=== PATIENT | male | born 1970 | race Two or more races ===

== ENCOUNTER 2020-01-09 18:20 | Emergency (ER) | payer MEDICAID, OTHER ==
[~2020-01-09] VITALS: Ht 182.9 cm; Wt 81.6 kg
[2020-01-09 18:47] VITALS: BP 131/79
[2020-01-09] MEDS ORDERED: Lidocaine 1% MPF 10mg/ml 5ml INJ ONE (19:15)
--- NOTE | 2020-01-09 19:42 | Emergency Room Report ---
History of Present Illness General Chief Complaint: General Complaint Source: Patient Present Illness HPI 49 YO male presents to the ED with 2 complaints. pt. reports 7/10 in severity dysuria x 1 week. He reports burning sensation to the tip of his penis. He denies penile d/c. He denies hematuria. Pt. denies testicular pain or swelling. Pt. reports being sexually active. Pt. denies abdominal pain, tenderness, fevers or chills. He denies rashes or genital sores. Pt. also c/o having acid reflux and is requesting medications for this. Pt. reports that for his urinary symptoms in the past Doxycycline worked the best for him. he denies low back pain. Pt. denies constipation or diarrhea. Pt. denies rectal pain. He denies blood in the stool or black tarry stool. Pt. reports he does not currently have a PCP and is wanting referral for that as well. No other aggravating or relieving factors at this time. Allergies: Coded Allergies: No Known Allergies (Unverified , 01/09/20) COVID-19 Screening Contact w/high risk pt: No Experienced COVID-19 symptoms?: No COVID-19 Testing performed BOOM STORAGE: No Patient History Past Medical History: see triage record Past Surgical History: none Pertinent Family History: none Reviewed Nursing Documentation: PMH: Agreed; PSxH: Agreed Nursing Documentation-PMH Past Medical History: No Stated History Review of Systems All Other Systems: negative except mentioned in HPI Physical Exam Vital Signs Date Time Temp Pulse Resp B/P (MAP) Pulse Ox O2 Delivery O2 Flow Rate FiO2 01/09/20 18:30 99.0 103 17 134/86 (102) 98 Room Air Sp02 EP Interpretation: reviewed, normal General Appearance: no apparent distress, alert, GCS 15, non-toxic Head: normocephalic, atraumatic Eyes: bilateral eye normal inspection, bilateral eye PERRL ENT: hearing grossly normal, normal voice Neck: full range of motion Respiratory: lungs clear, normal breath sounds, speaking full sentences Cardiovascular #1: regular rate, rhythm Gastrointestinal: normal bowel sounds, non tender, soft, non-distended, no guarding Rectal: deferred Genitourinary: normal inspection, no CVA tenderness, scrotum normal, other - no rashes, no sores, no testicular tenderness, no visible penile d/c. Musculoskeletal: back normal, normal range of motion, gait/station normal, non- tender Neurologic: alert, motor strength/tone normal, oriented x3, sensory intact, responsive, speech normal Psychiatric: judgement/insight normal, anxious Skin: no rash, normal color Lymphatic: no adenopathy Medical Decision Making PA Attestation Dr. Tucker is my supervising Physician whom patient management has been discussed with. Diagnostic Impression: Primary Impression: Urethritis ER Course 49 YO male presents to the ED with 2 complaints. pt. reports 7/10 in severity dysuria x 1 week. He reports burning sensation to the tip of his penis. He denies penile d/c. He denies hematuria. Pt. denies testicular pain or swelling. Pt. reports being sexually active. Pt. denies abdominal pain, tenderness, fevers or chills. He denies rashes or genital sores. Pt. also c/o having acid reflux and is requesting medications for this. Pt. reports that for his urinary symptoms in the past Doxycycline worked the best for him. he denies low back pain. Pt. denies constipation or diarrhea. Pt. denies rectal pain. He denies blood in the stool or black tarry stool. Pt. reports he does not currently have a PCP and is wanting referral for that as well. No other aggravating or relieving factors at this time. Ddx considered but are not limited to UTi , Urethritis, LGV, STI, Stone, Cystitis, prostatitis, gastritis, GERD just to name a few. [employer] Program Technician for PE was: ANGELIA Price Vital signs: are WNL, pt. is afebrile H&PE are most consistent with Urethritis ORDERS: - UA : Mucus present, no increased inflammatory markers. ED INTERVENTIONS: -250mg Rocephin IM -I do not identify an emergent condition at this time. With current presentation , pt. is stable for close outpatient follow up and conservative treatment. D/ w pt. to return promptly to ED with worsening or new symptoms.- Pt. verbalizes' understanding and agreement with proposed treatment plan. DISCHARGE: At this time pt. is stable for d/c to home. Will provide printed patient care instructions, and any necessary prescriptions. Care plan and follow up instructions have been discussed with the patient prior to discharge. Labs Test 01/09/20 19:44 Urine Color Yellow Urine Appearance Clear Urine pH 5 (4.5-8.0) Urine Specific [place] 1.020 (1.005-1.035) Urine Protein Negative (NEGATIVE) Urine Glucose (UA) Negative (NEGATIVE) Urine Ketones 1+ (NEGATIVE) Urine Blood Negative (NEGATIVE) Urine Nitrite Negative (NEGATIVE) Urine Bilirubin Negative (NEGATIVE) Urine Urobilinogen Normal MG/DL (0.0-1.0) Urine Leukocyte Esterase Negative (NEGATIVE) Urine RBC 0 /HPF (0 - 0) Urine WBC 0-2 /HPF (0 - 0) Urine Squamous Epithelial Cells None /LPF (NONE/OCC) Urine Bacteria Occasional /HPF (NONE) Urine Mucus Few /LPF (NONE/OCC) Last Vital Signs Date Time Temp Pulse Resp B/P (MAP) Pulse Ox O2 Delivery O2 Flow Rate FiO2 01/09/20 18:47 99 18 Room Air 01/09/20 18:47 99.0 131/79 98 Disposition: HOME, SELF-CARE Condition: Stable Scripts Famotidine* (Pepcid 20mg tablet*) 20 Mg Tablet 20 MG ORAL TWICE A DAY for 7 Days, #14 TAB 0 Refills Prov: Carmen López 01/09/20 Doxycycline Hyclate* (VIBRAMYCIN*) 100 Mg Capsule 100 MG ORAL EVERY 12 HOURS for 7 Days, #14 CAP 0 Refills Prov: Carmen López 01/09/20 Referrals: [facility],REFERRING (PCP) [facility] Patient Instructions: Medical Screening Exam Additional Instructions: * You were given an injection of Rocephin ( antibiotic) at today's visit. Take medications as directed. Follow up with a Primary Care Provider in 3-5 days, even if your symptoms have resolved. --Please review list of primary care clinics, if you do not already have a primary care provider Return sooner to ED if new symptoms occur, or current symptoms become worse. - Please note that this Emergency Department Report was dictated using [email or web address] control analyst technology software, occasionally this can lead to erroneous entry secondary to interpretation by the dictation equipment. Carmen López Jan 09, 2020 19:42
[2020-01-09 19:54] LABS: BILIRUBIN, URINE NEGATIVE (NEGATIVE); GLUCOSE, URINE (UA) NEGATIVE (NEGATIVE); KETONES,URINE 1+ (NEGATIVE); LEUKOCYTE ESTERASE ,URINE NEGATIVE (NEGATIVE); NITRITE,URINE NEGATIVE (NEGATIVE); PH,URINE 5 (4.5-8.0); PROTEIN,URINE NEGATIVE (NEGATIVE); UROBILINOGEN,URINE NORMAL MG/DL (0.0-1.0)
[2020-01-09 19:55] LABS: APPEARANCE,URINE CLEAR; COLOR,URINE YELLOW
[2020-01-09] MEDS ORDERED: VIBRAMYCIN100 MG ORAL (20:04)
[2020-01-09] MEDS ORDERED: FAMOTIDINE20 MG ORAL (20:04)
[2020-01-09 20:13] VITALS: BP 131/79
== END 2020-01-09 20:11 | disposition home or self-care (01) ==
LOC: EMR 18:50
DX: N34.2 Other urethritis (principal); K21.9 Gastro-esophageal reflux disease without esophagitis
CPT/HCPCS: 81001; 96372; 96374; J0696; Z7502; 99284

== ENCOUNTER 2020-01-26 17:23 | Emergency (ER) | payer MEDICAID ==
[~2020-01-26] VITALS: Ht 182.9 cm; Wt 81.6 kg
[~2020-01-26 17:23] MED LIST: FAMOTIDINE20 MG ORAL; VIBRAMYCIN100 MG ORAL
[2020-01-26 17:45] VITALS: BP 130/85
--- NOTE | 2020-01-26 17:46 | NUR ---
ED Nurse Note: Patient walked in to ER from home, stated " I have urethritis, difficulty swallowing, and have shooting sensation inside of my penis whenever Im using bathroom". Patient presented calm, AAO x4, VSS at this time.
[2020-01-26] MEDS ORDERED: Ketorolac 30mg Inj IM ONE (18:30)
--- NOTE | 2020-01-26 18:45 | Emergency Room Report ---
History of Present Illness General Chief Complaint: General Complaint Source: Patient Present Illness HPI 49 YO male presents to the ED w. 3 complaints. The first is 8/10 in severity pulling and "narrow" sensation in the penis x 3 weeks. Pt. also c/o 5/10 in severity low back and rectal pain that feels like "a volatile nerve shooting". Lastly pt. c/o discomfort in his throat most prominently when swallowing of a narrowing of the throat. He denies throat pain. Denies hematuria or blood in the stool. he denies abdominal pain or tenderness. Pt. denies family hx of cancer, or personal suspicion for cancer. Pt. denies hemorrhoids. Pt. denies anal intercourse. Pt. denies penile d/c. Pt. reports not having a PCP, and he did not follow up after last ED visit. Pt. denies urinary frequency. Pt. reports the treatments he received at last visit only helped "calm his symptoms " a little. Pt. denies joint pain or swollen tender lymph nodes. He denies night sweats or significant changes in weight. Pt. denies PmHx other than GERD. He denies rashes, sores or testicular pain or swelling. Allergies: Coded Allergies: No Known Allergies (Unverified , 01/09/20) COVID-19 Screening Contact w/high risk pt: No Experienced COVID-19 symptoms?: No COVID-19 Testing performed HOP PICKER: No Patient History Past Medical History: see triage record Past Surgical History: none Pertinent Family History: none Reviewed Nursing Documentation: PMH: Agreed; PSxH: Agreed Nursing Documentation-PMH Past Medical History: No Stated History Hx Cardiac Problems: No Hx Hypertension: No Hx Pacemaker: No Hx Asthma: No Hx COPD: No Hx Diabetes: No Hx Cancer: No Hx Gastrointestinal Problems: No Hx Dialysis: No History Of Psychiatric Problem: No Hx Neurological Problems: No Hx Cerebrovascular Accident: No Hx Seizures: No Review of Systems All Other Systems: negative except mentioned in HPI Physical Exam Vital Signs Date Time Temp Pulse Resp B/P (MAP) Pulse Ox O2 Delivery O2 Flow Rate FiO2 01/26/20 17:32 98.4 99 17 130/85 (100) 97 Room Air Sp02 EP Interpretation: reviewed, normal General Appearance: no apparent distress, alert, GCS 15, non-toxic Head: normocephalic, atraumatic Eyes: bilateral eye normal inspection, bilateral eye PERRL ENT: hearing grossly normal, normal pharynx, normal voice, uvula midline, moist mucus membranes, other - no exudates, no stridor Neck: full range of motion Respiratory: lungs clear, normal breath sounds, speaking full sentences Cardiovascular #1: regular rate, rhythm Gastrointestinal: normal bowel sounds, non tender, soft, no peritonitis, non- distended, no guarding Rectal: normal rectal tone, deferred, other - no hemorrhoids or perianal abscess, no pilonidal swelling Genitourinary: normal inspection, no CVA tenderness, penis normal, scrotum normal, other - negative phren's , normal cremasteric reflex, no rashes, no lesions, Musculoskeletal: back normal, normal range of motion, gait/station normal, non- tender, tender - some right lumbar paraspinal tenderness. No midline spinous process ttp. No palpable step-offs or obvious deformities of the cervical, lumbar, or sacral spine. Neurologic: alert, motor strength/tone normal, oriented x3, sensory intact, responsive, speech normal Psychiatric: mood/affect normal, no delusions, anxious - very talkative, non- linear thought process Skin: no rash, normal color Lymphatic: no adenopathy Medical Decision Making PA Attestation Dr. Boo is my supervising Physician whom patient management has been discussed with. Diagnostic Impression: Primary Impression: Throat irritation Additional Impressions: Urethral irritation Nerve pain ER Course 49 YO male presents to the ED w. 3 complaints. The first is 8/10 in severity pulling and "narrow" sensation in the penis x 3 weeks. Pt. also c/o 5/10 in severity low back and rectal pain that feels like "a volatile nerve shooting". Lastly pt. c/o discomfort in his throat most prominently when swallowing of a narrowing of the throat. He denies throat pain. Denies hematuria or blood in the stool. he denies abdominal pain or tenderness. Pt. denies family hx of cancer, or personal suspicion for cancer. Pt. denies hemorrhoids. Pt. denies anal intercourse. Pt. denies penile d/c. Pt. reports not having a PCP, and he did not follow up after last ED visit. Pt. denies urinary frequency. Pt. reports the treatments he received at last visit only helped "calm his symptoms " a little. Pt. denies joint pain or swollen tender lymph nodes. He denies night sweats or significant changes in weight. Pt. denies PmHx other than GERD. He denies rashes, sores or testicular pain or swelling. Ddx considered but are not limited to UTi , Urethritis, LGV, STI, Stone, Cystitis, prostatitis, cancer, pinched nerve, rectal abscess, hemorrhoid, strep , achalasia, HOP PICKER just to name a few. Cnc Lathe Machine Operator for PE was: canvassing managerFernando Hoffmann Vital signs: are WNL, pt. is afebrile H&PE are most consistent with Urethritis -Pt. with very vague description of his symptoms. ORDERS: - UA : ED INTERVENTIONS: -Toradol 30mg IM -I do not identify an emergent condition at this time. With current presentation , pt. is stable for close outpatient follow up and conservative treatment. D/ w pt. to return promptly to ED with worsening or new symptoms.- Pt. verbalizes' understanding and agreement with proposed treatment plan. I discussed with this patient that I do not recognize an emergent condition and that if his symptoms persist without change he needs to follow-up with specialist to have more in-depth evaluation. DISCHARGE: At this time pt. is stable for d/c to home. Will provide printed patient care instructions, and any necessary prescriptions. Care plan and follow up instructions have been discussed with the patient prior to discharge. Labs Test 01/26/20 18:28 Urine Color Yellow Urine Appearance Clear Urine pH 5.0 (4.5-8.0) Urine Specific [place] 1.025 (1.005-1.035) Urine Protein Negative (NEGATIVE) Urine Glucose (UA) Negative (NEGATIVE) Urine Ketones Negative (NEGATIVE) Urine Blood Negative (NEGATIVE) Urine Nitrite Negative (NEGATIVE) Urine Bilirubin Negative (NEGATIVE) Urine Urobilinogen Normal MG/DL (0.0-1.0) Urine Leukocyte Esterase Negative (NEGATIVE) Last Vital Signs Date Time Temp Pulse Resp B/P (MAP) Pulse Ox O2 Delivery O2 Flow Rate FiO2 01/26/20 17:45 99 17 Room Air 01/26/20 17:45 98.4 130/85 97 Disposition: HOME, SELF-CARE Condition: Stable Scripts Methocarbamol* (ROBAXIN-750*) 750 Mg Tablet 750 MG PO QID, #28 TAB 0 Refills Prov: Carmen López 01/26/20 Referrals: [facility],REFERRING (PCP) [facility] Patient Instructions: Medical Screening Exam Additional Instructions: ~ ~ An emergent medical condition has not been identified based on this patients presentation, exam and any necessary testing/imaging. The patient is determined to be stable for outpatient follow-up and management of symptoms by a primary care provider. Take medications as directed. Follow up with a Primary Care Provider in 3-5 days, even if your symptoms have resolved. ENT Specialist, GI Specialist, and Urology referrals recommended --Please review list of primary care clinics, if you do not already have a primary care provider Return sooner to ED if new symptoms occur, or current symptoms become worse. - Please note that this Emergency Department Report was dictated using [employer] installation technician technology software, occasionally this can lead to erroneous entry secondary to interpretation by the dictation equipment. Carmen López Jan 26, 2020 18:45
[2020-01-26 18:52] LABS: APPEARANCE,URINE CLEAR; BILIRUBIN, URINE NEGATIVE (NEGATIVE); COLOR,URINE YELLOW; GLUCOSE, URINE (UA) NEGATIVE (NEGATIVE); KETONES,URINE NEGATIVE (NEGATIVE); LEUKOCYTE ESTERASE ,URINE NEGATIVE (NEGATIVE); NITRITE,URINE NEGATIVE (NEGATIVE); PROTEIN,URINE NEGATIVE (NEGATIVE); UROBILINOGEN,URINE NORMAL MG/DL (0.0-1.0)
[2020-01-26] MEDS ORDERED: ROBAXIN-750750 MG PO (19:00)
[2020-01-26 19:07] VITALS: BP 130/85
--- NOTE | 2020-01-26 19:08 | NUR ---
ED Nurse Note: Pt cleared by health care Provider for discharge. DC instructions/prescription was given and explained to pt and verbalized understanding of teachings. All medical deviecs such as ID band removed. Pt is AAO x4, ambulatory and left with all personal belongings.
== END 2020-01-26 19:08 | disposition home or self-care (01) ==
LOC: EMR 17:57
DX: R07.0 Pain in throat (principal); M79.2 Neuralgia and neuritis, unspecified; N36.9 Urethral disorder, unspecified
CPT/HCPCS: 81003; 96372; J1885; Z7502; 99283